=== PATIENT | male | born 1985 | race Caucasian/White ===

== ENCOUNTER 2019-10-03 19:17 | Emergency (ER) | payer OTHER, SELFPAY ==
[2019-10-03 19:26] VITALS: PULSE 67; O2SAT 97
[2019-10-03 19:32] VITALS: BP 136/91; PULSE 78; RESP 22; TEMP 37.1; O2SAT 98; BMI 29.9
--- NOTE | 2019-10-03 19:34 | DI.RAD.S_ITS ---
PROCEDURE: XR CHEST 2V INDICATIONS: URI 2 weeks TECHNIQUE: 2 views of the chest were acquired. COMPARISON: None. FINDINGS: Surgical changes and devices: None. Lungs and pleura: Lungs are clear. No pleural effusions or pneumothorax. Mediastinum: Mediastinal contours are normal. Heart size is normal. Bones and chest wall: No suspicious bony abnormalities. Soft tissues appear unremarkable. IMPRESSION: No acute cardiopulmonary abnormalities or focal airspace disease. Dictated by: Adam Blank M.D. on 10/03/2019 at 20:26 Approved by: Adam Blank M.D. on 10/03/2019 at 20:27
[2019-10-03 20:18] LABS: Influenza A - CEPHEID Flu A NEGATIVE (NEGATIVE); Influenza B - CEPHEID Flu B NEGATIVE (NEGATIVE)
--- NOTE | 2019-10-03 20:44 | ED_ITS ---
HPI - URI/Sore Throat <KOSTAS Caldwell - Last Filed: 10/03/19 21:38> General Chief Complaint: Upper Respiratory Symptoms Stated Complaint: COUGH,HARD TO BREATH Time Seen by Provider: 10/03/19 20:19 Source: patient Mode of arrival: Ambulatory Limitations: no limitations History of Present Illness HPI Narrative: The patient is a 34-year-old male nonsmoker tobacco chewer who presents with a chief complaint a cough for a week. States he is coughing up phlegm and that his lungs of burn when he coughs. He denies any fevers nausea vomiting or diarrhea. He states he had transient loss of voice, laryngitis and sore throat. He has not followed up with primary care provider. He denies any chest pain. He denies any ear pain he denies any current sore throat. Related Data Previous Rx's Medication Instructions Recorded benzonatate [Tessalon Perles] 100 mg PO TID PRN #20 cap 10/03/19 Allergies Allergy/AdvReac Type Severity Reaction Status Date / Time No Known Drug Allergies Allergy Verified 10/03/19 19:31 Review of Systems <KOSTAS Caldwell - Last Filed: 10/03/19 21:38> Review of Systems Narrative: GENERAL: See HPI HEENT: Denies sinus pain, ear pain, sore throat, difficulty swallowing, dizziness. RESPIRATORY: See HPI CARDIOVASCULAR: Denies chest pain, palpitations, orthopnea, edema, GASTROINTESTINAL: Denies nausea, vomiting, abdominal pain, diarrhea, constipation, melena. : Denies dysuria, frequency, incontinence, hematuria, urinary retention. MUSCULOSKELETAL: denies weakness, joint pain, or bony pain SKIN: Denies rash, skin lesions, or other NEUROLOGIC: Denies weakness, headache, numbness, change in speech, confusion, seizures, incoordination. PSYCHIATRIC: No concerning psychosocial issues. 12 point review of systems is negative except for those stated above Patient History <KOSTAS Caldwell - Last Filed: 10/03/19 21:38> Social History Smoking Status: Never smoker alcohol intake frequency: holidays/special occasions only Substance Use Type: does not use Exam <KOSTAS Caldwell - Last Filed: 10/03/19 21:38> Narrative Exam Narrative: GENERAL: This is a well-nourished, well-developed patient, no acute distress HEAD: Atraumatic. Normocephalic. No temporal or scalp tenderness. EYES: Pupils equal round and reactive. Extraocular motions intact. No scleral icterus. No injection or drainage. ENT: Nose without bleeding, purulent drainage or septal hematoma. Throat without erythema, tonsillar hypertrophy or exudate. Uvula midline. Airway patent. NECK: Trachea midline. No JVD or lymphadenopathy. Supple, nontender, no meningeal signs. CARDIOVASCULAR: Regular rate and rhythm without murmurs, gallops, or rubs. RESPIRATORY: Clear to auscultation. Breath sounds equal bilaterally. No wheezes, rales, or rhonchi. No cough. No increased respiratory effort. No accessory muscle. GASTROINTESTINAL: Abdomen soft, non-tender, nondistended. No hepato- splenomegaly, or palpable masses. No guarding. EXTREMITIES: No clubbing, cyanosis, or edema. No joint tenderness, effusion, or edema noted. BACK: Nontender without deformity or crepitance. No flank tenderness. NEURO: AOx3. SKIN: No rash or erythema. Initial Vital Signs Initial Vital Signs: Vital Signs Pulse Rate 67 10/03/19 19:26 Pulse Oximetry 97 10/03/19 19:26 <Hugo Carreon DO - Last Filed: 10/04/19 03:13> Initial Vital Signs Initial Vital Signs: Vital Signs Pulse Rate 67 10/03/19 19:26 Pulse Oximetry 97 10/03/19 19:26 Course <KOSTAS Caldwell - Last Filed: 10/03/19 21:38> Orders Ordered: ED Orders 10/03/19 19:34 XR chest 2V Stat 10/03/19 19:40 Flu test [Influenza A & B (PCR)] Stat Discontinued Medications Albuterol (Ventolin Hfa Prepack) 1 box MISC SEEINSTR ONE Stop: 10/03/19 21:21 Last Admin: 10/03/19 21:31 Dose: 1 box Documented by: CASSIE Benzonatate (Tessalon Perlog) 100 mg PO NOW ONE Stop: 10/03/19 21:21 Last Admin: 10/03/19 21:32 Dose: 100 mg Documented by: GALINDO Vital Signs Vital signs: Vital Signs - 8 hr 10/03/19 19:26 10/03/19 19:32 10/03/19 21:15 Temperature 98.7 F 98.6 F Pulse Rate 67 78 80 Respiratory Rate 22 16 Blood Pressure 136/91 H Pulse Oximetry 97 98 98 10/03/19 21:36 Temperature Pulse Rate 70 Respiratory Rate 16 Blood Pressure Pulse Oximetry 98 <DO Ashley Morales Last Filed: 10/04/19 03:13> Orders Ordered: ED Orders 10/03/19 19:34 XR chest 2V Stat 10/03/19 19:40 Flu test [Influenza A & B (PCR)] Stat Discontinued Medications Albuterol (Ventolin Hfa Prepack) 1 box MISC SEEINSTR ONE Stop: 10/03/19 21:21 Last Admin: 10/03/19 21:31 Dose: 1 box Documented by: CASSIE Benzonatate (Tessalon Perlog) 100 mg PO NOW ONE Stop: 10/03/19 21:21 Last Admin: 10/03/19 21:32 Dose: 100 mg Documented by: GALINDO Vital Signs Vital signs: Vital Signs - 8 hr 10/03/19 19:26 10/03/19 19:32 10/03/19 21:15 Temperature 98.7 F 98.6 F Pulse Rate 67 78 80 Respiratory Rate 22 16 Blood Pressure 136/91 H Pulse Oximetry 97 98 98 10/03/19 21:36 Temperature Pulse Rate 70 Respiratory Rate 16 Blood Pressure Pulse Oximetry 98 MDM - URI/Sore Throat <KOSTAS Caldwell - Last Filed: 10/03/19 21:38> Lab Data Labs: Lab Results 10/03/19 Range/Units 19:40 Influenza A (RT-PCR) Flu a negative (NEGATIVE) Influenza B (RT-PCR) Flu b negative (NEGATIVE) Imaging Data Chest x-ray: Radiologist's impression: [address] [address] XRay Report Signed Patient: Pino Posadas RMR#: [id number] : 1985Acct:[id number] Age/Sex: 34 / MDate of Service: 10/03/19 Loc: ED Accession Number: [id number] Procedure: XR chest 2V Ordering Provider: Hugo Carreon D.O. PROCEDURE: XR CHEST 2V INDICATIONS: URI 2 weeks TECHNIQUE: 2 views of the chest were acquired. COMPARISON: None. FINDINGS: Surgical changes and devices: None. Lungs and pleura: Lungs are clear. No pleural effusions or pneumothorax. Mediastinum: Mediastinal contours are normal. Heart size is normal. Bones and chest wall: No suspicious bony abnormalities. Soft tissues appear unremarkable. IMPRESSION: No acute cardiopulmonary abnormalities or focal airspace disease. Dictated by: Adam Blank M.D. on 10/03/2019 at 20:26 Approved by: Adam Blank M.D. on 10/03/2019 at 20:27 [facility] Narrative Medical decision making narrative: The patient is a 34-year-old male who pr esents with a chief complaint of a cough for a week. Negative x-ray. He is afebrile, hemodynamically stable oxygenating well. Negative flu. I discussed at length the importance of following up with primary care provider if his symptoms do not improve, coming back to the emergency department for any acute concerns such as chest pain, shortness of breath. He was given an albuterol with a spacer in the emergency department and I sent a prescription for Tessalon Perles. Patient states understanding of return precautions as well as follow-up care and has no questions or concerns upon discharge <Hugo Carreon, - Last Filed: 10/04/19 03:13> Lab Data Labs: Lab Results 10/03/19 Range/Units 19:40 Influenza A (RT-PCR) Flu a negative (NEGATIVE) Influenza B (RT-PCR) Flu b negative (NEGATIVE) Discharge Plan Departure Patient Disposition: Home Clinical Impression: Bronchitis Discharge Date/Time: 10/03/19 21:40 Instructions: DI for Acute Bronchitis, DI for Bronchiolitis Activity Restrictions/Additional Instructions: Your x-ray today shows no pneumonia in her flu test is negative Please use the albuterol with spacer. I sent a prescription of Tessalon Perles to [facility] in [place] Please follow up with primary care provider. Please come back to the emergency department for any acute concerns Prescriptions: New benzonatate [Tessalon Perles] 100 mg capsule 100 mg PO TID PRN (Reason: cough) Qty: 20 RF: 0 Referrals: [facility] [Provider Group]
[2019-10-03 21:15] VITALS: PULSE 80; RESP 16; TEMP 37; O2SAT 98
[2019-10-03] MEDS: ALBUTEROL HFA PREPACK 1 BOX MISC (21:31)
[2019-10-03] MEDS: BENZONATATE 100 MG CAPSULE PO (21:32)
[2019-10-03 21:36] VITALS: PULSE 70; RESP 16; O2SAT 98
== END 2019-10-03 21:40 | disposition home or self-care (01) ==
PROVIDERS: Emergency Medicine; Emergency Provider Nurse Practitioner Family
DX: J20.9 Acute bronchitis, unspecified (principal)
CPT/HCPCS: 71046; 87502; 94640; 99282; 99283

== ENCOUNTER 2019-12-20 20:39 | Emergency (ER) | payer OTHER, SELFPAY ==
[2019-12-20 21:06] VITALS: BP 147/84; PULSE 85; RESP 14; TEMP 36.4; O2SAT 99
--- NOTE | 2019-12-20 21:10 | DI.RAD.S_ITS ---
PROCEDURE: XR RIBS RT MIN 3V W CXR 1V INDICATIONS: pain right ribs after trauma. ED WR TECHNIQUE: 2 views of the right ribs were acquired, along with a single view chest. COMPARISON: [facility], , XR CHEST 2V, 10/03/2019, 20:00. FINDINGS: Surgical changes and devices: None. Bones and chest wall: A marker is placed upon the area of clinical concern. Within this region, no displaced rib fracture or other significant rib abnormality can be seen. No rib fractures are seen elsewhere. No suspicious bony lesions. Overlying soft tissues appear unremarkable. Lungs and pleura: No pleural effusions or pneumothorax. Lungs appear clear. Mediastinum: Mediastinal contours appear normal. Heart size is normal. IMPRESSION: No displaced rib fractures are seen. No pneumothorax. Dictated by: Darío Arvizu M.D. on 12/20/2019 at 21:44 Approved by: Darío Arvizu M.D. on 12/20/2019 at 21:45
[2019-12-21 00:35] VITALS: BP 137/95; PULSE 70; RESP 16; O2SAT 98
--- NOTE | 2019-12-21 08:12 | ED.TRAUMA ---
HPI - Trauma General Chief Complaint: Extremity Injury, Upper Stated Complaint: thinks he broke a rib Time Seen by Provider: 12/20/19 23:56 Source: patient Mode of arrival: Ambulatory Limitations: language barrier History of Present Illness HPI narrative: 34-year-old male nonsmoker without significant medical history presents with a chief complaint of some right-sided rib pain, he is convinced he broke a rib. He states that a few days ago he was carrying a large heavy object and tripped and fell into it forcing it into his right-sided lower ribs. He now has sharp and stabbing pain with palpation, deep breath or motion. He states he can feel some clicking on his right lateral ribs. He denies any shortness of breath, cough or hemoptysis. He denies other injury and is not dizzy nor weak or lightheaded. complaint: injury Onset (ago): day(s) Loss of Consciousness: no Location: chest Severity: moderate Associated symptoms: denies other symptoms Related Data Home Medications Medication Instructions Recorded Confirmed ibuprofen 800 mg PO Q8H PRN 12/20/19 12/20/19 Previous Rx's Medication Instructions Recorded hydrocodone-acetaminophen 1 tab PO Q8H PRN #10 tab 12/21/19 lidocaine [Lidoderm] 1 patch TOP DAILY #15 each 12/21/19 Allergies Allergy/AdvReac Type Severity Reaction Status Date / Time No Known Drug Allergies Allergy Verified 12/20/19 21:09 Review of Systems Constitutional Constitutional: Denies chills, Denies fatigue, Denies fever(s), Denies frequent falls, Denies lethargy and Denies weakness Eyes Eyes: Denies change in vision, Denies eye discharge, Denies irritation and Denies loss of vision ENT Ears, Nose, Mouth, and Throat: Denies change in voice, Denies dizziness, Denies neck pain, Denies sore throat and Denies throat swelling Cardiovascular Cardiovascular: Reports chest pain, Denies irregular heart rhythm, Denies lightheadedness, Denies palpitations, Denies dyspnea, Denies dyspnea on exertion and Denies orthopnea Respiratory Respiratory: Denies cough, Denies dyspnea, Denies dyspnea on exertion and Denies wheezing Gastrointestinal Gastrointestinal: Denies abdominal pain, Denies change in bowel habits, Denies diarrhea, Denies nausea and Denies vomiting Genitourinary Genitourinary: Denies hematuria, Denies flank pain, Denies urinary incontinence and Denies urinary urgency Musculoskeletal Musculoskeletal: Denies back pain, Denies muscle weakness, Denies neck pain, Denies numbness and Denies tingling Integumentary/Breasts Skin/Breast: Denies pruritus, Denies erythema, Denies rash and Denies wounds Neurologic Neurologic: Denies behavioral changes, Denies confusion, Denies dizziness, Denies frequent falls, Denies loss of vision, Denies numbness, Denies tingling and Denies weakness Psychiatric Psychiatric: Denies anxiety, Denies behavioral changes, Denies confusion, Denies depression, Denies homicidal ideation and Denies suicidal ideation Endocrine Endocrine: Denies fatigue, Denies flushing and Denies palpitations Hematologic/Lymphatic Hematologic/Lymphatic: Denies easy bruising Allergic/Immunologic Allergic/Immunologic: Denies urticaria, Denies throat swelling and Denies wheezing Patient History Social History Smoking Status: Never smoker Smoking Status: Never smoker alcohol intake frequency: holidays/special occasions only Substance Use Type: does not use Exam Narrative Exam Narrative: GEN: AOx3 and in mild distress EYES: Pupils are equal, round, and reactive to light and accommodation. Extraoccular muscles are intact bilaterally. There is no subconjunctival hemorrhage or exudate. CHEST: Lungs are clear to auscultation bilaterally and free of wheezes, rales, or rhonchi. Heart rate is regular rhythm, there are no murmurs, clicks, rubs, or gallops. Tenderness to palpation overlying the right-sided lower, lateral ribs. No palpable crepitance edema or induration. No obvious ecchymosis. ABD: Abdomen is soft and nontender. There is no guarding or rebound. Bowel sounds are normal in all 4 quadrants. There is no mass or organomegaly. EXT: Full painless ROM of all extremities with no loss of sensation or strength. SKIN: Warm, pink, and dry. No erythema or rash Initial Vital Signs Initial Vital Signs: Vital Signs Temperature 97.5 F L 12/20/19 21:06 Pulse Rate 85 12/20/19 21:06 Respiratory Rate 14 12/20/19 21:06 Blood Pressure 147/84 H 12/20/19 21:06 Pulse Oximetry 99 12/20/19 21:06 Course Orders Ordered: Discontinued Medications Hydrocodone Bitart/Acetaminophen (Vicodin 5/325 Prepack) 1 bottle MISC SEEINSTR ONE Stop: 12/21/19 00:12 Lidocaine (Lidoderm) 1 each TOP NOW ONE Stop: 12/21/19 00:12 Vital Signs Vital signs: Vital Signs - 8 hr 12/21/19 00:35 Pulse Rate 70 Respiratory Rate 16 Blood Pressure 137/95 H Pulse Oximetry 98 MDM - Trauma Imaging Data Chest x-ray: Radiologist's Impression: Chart Viewer Diagnostics DATE TYPE STATUS AUTHOR Hx 12/20/19 21:10 Darío Arvizu 10/03/19 19:34 Adam Blank Donald R 34, M0 1985 DEP ER, [facility] 95.254kg Extremity Injury, Upper Search Chart No Data to Display ONSET Today 00:35 Job Posadasald Lobo 34 M [address] [address] XRay Report Signed Patient: Pino Posadas RMR#: [id number] : 1985Acct:[id number] Age/Sex: 34 / MDate of Service: 12/20/19 Loc: ED Accession Number: [id number] Procedure: XR ribs RT min 3V w CXR1V Ordering Provider: Hugo Carreon D.O. PROCEDURE: XR RIBS RT MIN 3V W CXR 1V INDICATIONS: pain right ribs after trauma. ED WR TECHNIQUE: 2 views of the right ribs were acquired, along with a single view chest. [facility] 20[facility]00. FINDINGS: Surgical changes and devices: None. Bones and chest wall: A marker is placed upon the area of clinical concern. Within this region, no displaced rib fracture or other significant rib abnormality can be seen. No rib fractures are seen elsewhere. No suspicious bony lesions. Overlying soft tissues appear unremarkable. Lungs and pleura: No pleural effusions or pneumothorax. Lungs appear clear. Mediastinum: Mediastinal contours appear normal. Heart size is normal. IMPRESSION: No displaced rib fractures are seen. No pneumothorax. Dictated by: Darío Arvizu M.D. on 12/20/2019 at 21:44 Approved by: Darío Arvizu M.D. on 12/20/2019 at 21:45 Discharge Plan Departure Patient Disposition: Home Clinical Impression: Contusion of rib on right side Qualifiers: Encounter type: initial encounter Qualified Code(s): S20.211A - Contusion of right front wall of thorax, initial encounter Discharge Date/Time: 12/21/19 00:37 Instructions: DI for Rib Contusion Activity Restrictions/Additional Instructions: *You have been diagnosed with [acute right-sided rib contusion] *What to do: *Take medications as directed *Follow up with your primary care provider in 2-3 days, call for an appointment. Let them know you were seen in the Emergency Department and that we ask that you be seen in follow up *Return to ER if you should have any new, worsening or concerning symptoms Prescriptions: New hydrocodone-acetaminophen 5-325 mg tablet 1 tab PO Q8H PRN (Reason: pain) Qty: 10 RF: 0 lidocaine [Lidoderm] 5 % adhesive patch,medicated 1 patch TOP DAILY Qty: 15 RF: 0 No Action ibuprofen 800 mg Tablet 800 mg PO Q8H PRN (Reason: Pain (Scale Score 1-3)) RF: 0
== END 2019-12-21 00:37 | disposition home or self-care (01) ==
PROVIDERS: Emergency Provider Emergency Medicine
DX: S20.211A Contusion of right front wall of thorax, initial encounter (principal); W01.10XA Fall on same level from slipping, tripping and stumbling with subsequent striking against unspecified object, initial encounter
CPT/HCPCS: 71101; 99283